=== PATIENT | male | born 1995 | race Caucasian/White ===

== ENCOUNTER 2024-05-10 08:55 | Emergency (ER) | payer OTHER, BC ==
[~2024-05-10] VITALS: Ht 175.3 cm; Wt 90.9 kg
[2024-05-10 12:00] VITALS: BP 135/81; TEMP 98.6; O2SAT 99
== END 2024-05-10 12:15 | disposition home or self-care (01) ==
LOC: M ED 08:55
DX: S93.402A Sprain of unspecified ligament of left ankle, initial encounter (principal); X50.0XXA Overexertion from strenuous movement or load, initial encounter; Y92.9 Unspecified place or not applicable; Y93.68 Activity, volleyball (beach) (court); Y99.9 Unspecified external cause status